=== PATIENT | female | born 1970 | race Two or more races ===

== ENCOUNTER 2021-03-26 12:47 | Emergency (ER) | payer OTHER ==
[~2021-03-26] VITALS: Ht 160 cm; Wt 77.1 kg
[2021-03-26] MEDS ORDERED: NORFLEX100MG PO (15:00)
[2021-03-26] MEDS ORDERED: KETO10TA2 PO (15:00)
== END 2021-03-26 16:08 | disposition home or self-care (01) ==
LOC: ER 12:47
DX: M54.5 Low back pain (principal)

== ENCOUNTER 2022-02-06 14:39 | Emergency (ER) | payer OTHER ==
[~2022-02-06] VITALS: Ht 160 cm; Wt 81.6 kg
[~2022-02-06 14:39] MED LIST: KETO10TA2 PO; NORFLEX100MG PO
== END 2022-02-06 19:00 | disposition home or self-care (01) ==
LOC: ER
DX: M54.9 Dorsalgia, unspecified (principal)